=== PATIENT | female | born 1950 | race Caucasian/White ===

== ENCOUNTER 2018-09-28 06:35 | Day surgery (SDC) | payer MEDICARE, BC ==
[~2018-09-28 06:35] MED LIST: CEFAZOLIN 1 GM/D5W RTU 1 GM/50 ML RTUPB IV PRN
[2018-09-28] MEDS ORDERED: BUPIVACAINE HCL 0.5 % INJ/PF 30 ML SDV ONE (07:10)
[2018-09-28] MEDS ORDERED: LIDOCAINE 2% INJ (20 MG/ML) 20 ML MDV ONE ×2 (07:10→07:14)
[2018-09-28] MEDS ORDERED: NORMAL SALINE INJ/PF 0.9% 10 ML SDV ONE (07:11)
[2018-09-28] MEDS ORDERED: BUPIVACAINE INJ/PF LIPOSOME/PF 266 MG/20 ML SDV ONE (07:12)
[2018-09-28] MEDS ORDERED: FENTANYL CITRATE INJ/PF 100 MCG/2 ML AMPUL ONE (07:14)
[2018-09-28] MEDS ORDERED: ACETAMINOPHEN 1,000 MG/100 ML RTUPB IV ONE (07:14)
[2018-09-28] MEDS ORDERED: MIDAZOLAM 2 MG/2 ML INJ ONE (07:14)
[2018-09-28] MEDS ORDERED: PROPOFOL INJ 200 MG/20 ML VIAL IV ONE (07:15)
[2018-09-28] MEDS ORDERED: LIDOCAINE 0.5% INJ-PF (5 MG/ML) 50 ML SDV ONE (07:16)
[2018-09-28] MEDS: BACITRACIN INJ 50,000 UNIT VIAL ONE ×2 (08:52→09:30)
[2018-09-28] MEDS: POLYMYXIN B SULFATE INJ 500000 UNIT VIAL ONE ×2 (08:53→09:30)
--- NOTE | 2018-09-28 10:34 | RADIOLOGY REPORT (SQ) ---
EXAM DESCRIPTION: NO CHG FLUORO; FOOT RIGHT 2 VIEWS COMPLETED DATE/TIME: 09/28/2018 10:24 am REASON FOR STUDY: RIGHT FOOT BUNIONECTOMY M20.21 HALLUX RIGIDUS, RIGHT FOOT COMPARISON: None. PROCEDURE: Intraoperative fluoroscopic images obtained to evaluate progress. Please see operative r eport for detailed description of procedure. FLUOROSCOPY TIME: 6 seconds 2 Images saved to PACS TECHNIQUE: Intra-operative images acquired during surgical procedure to evaluate progress. NUMBER OF IMAGES: 2 LIMITATIONS: None. FINDINGS: Limited intraoperative fluoroscopic images of obtained to evaluate progress. Please see o perative report for detailed description of procedure. IMPRESSION: IMAGE(S) OBTAINED DURING PROCEDURE. COMMENT: Quality ID [id number]: Final reports for procedures using fluoroscopy that document radiation exp osure indices, or exposure time and number of fluorographic images (if radiation exposure indices are not available) Please consult full operative report of the attending physician for description of the procedure. TECHNICAL DOCUMENTATION: JOB ID: [id number] [employer]- All Rights Reserved Reading location - IP/workstation name: [email or web address]
--- NOTE | 2018-09-28 10:34 | RADIOLOGY REPORT (SQ) ---
EXAM DESCRIPTION: NO CHG FLUORO; FOOT RIGHT 2 VIEWS COMPLETED DATE/TIME: 09/28/2018 10:24 am REASON FOR STUDY: RIGHT FOOT BUNIONECTOMY M20.21 HALLUX RIGIDUS, RIGHT FOOT COMPARISON: None. PROCEDURE: Intraoperative fluoroscopic images obtained to evaluate progress. Please see operative r eport for detailed description of procedure. FLUOROSCOPY TIME: 6 seconds 2 Images saved to PACS TECHNIQUE: Intra-operative images acquired during surgical procedure to evaluate progress. NUMBER OF IMAGES: 2 LIMITATIONS: None. FINDINGS: Limited intraoperative fluoroscopic images of obtained to evaluate progress. Please see o perative report for detailed description of procedure. IMPRESSION: IMAGE(S) OBTAINED DURING PROCEDURE. COMMENT: Quality ID [id number]: Final reports for procedures using fluoroscopy that document radiation exp osure indices, or exposure time and number of fluorographic images (if radiation exposure indices are not available) Please consult full operative report of the attending physician for description of the procedure. TECHNICAL DOCUMENTATION: JOB ID: [id number] [employer]- All Rights Reserved Reading location - IP/workstation name: [email or web address]
--- NOTE | 2018-09-28 11:12 | SURGICARE OPERATIVE REPORT E ---
[facility] Operative Report NAME: MARTHA CARSON AGE: 67Y DATE OF SURGERY: 09/28/2018 ROOM: PREOPERATIVE DIAGNOSIS: HALLUX RIGIDUS WITH DEGENERATIVE JOINT DISEASE, RIGHT FOOT. POSTOPERATIVE DIAGNOSIS: HALLUX RIGIDUS WITH DEGENERATIVE JOINT DISEASE, RIGHT FOOT. OPERATION: Gilbert bunionectomy with insertion of total Silastic implant right foot. SURGEON: SALMA SALAZAR DPM VEGETABLE THINNER: ABBI HART DPM PROCEDURE: Following induction of IV regional local anesthesia, the right foot and leg were prepped and draped in the usual sterile manner. A pneumatic tourniquet was placed around the ankle and inflated to 250 mmHg after exsanguination of the limb via Esmarch bandage. The following surgical procedure was then performed: Gilbert bunionectomy with insertion of total Silastic implant right foot. Attention was directed to the dorsal aspect of the first metatarsophalangeal joint where an approximately 5 cm dorsal linear incision was made. The incision was deep and via sharp dissection. All bleeders were clamped and bovied as necessary for the purposes of hemostasis. A capsular incision was made in the same manner as the original skin incision and was made medial to the extensor hallucis longus tendon. The capsule was then reflected medially and laterally from the bone. Utilizing a rongeur, hypertrophied bone on the dorsal aspect at the base of the proximal phalanx of the hallux was removed and from the dorsal aspect of the first metatarsal head was removed. Utilizing a eRepublik sagittal saw, the hypertrophied medial eminence of the first metatarsal head was osteotomized parallel to the long axis of the bone and removed en toto from the wound. Utilizing a McGlamry elevator, the sesamoids were freed from their attachment to the plantar aspect of the first metatarsal head so they could move freely. Utilizing a e[employer]lik sagittal saw, the cartilaginous cap of the first metatarsal head was osteotomized perpendicular to the long axis of the bone and removed en toto from the wound. Utilizing a side-cutting [place], a hole was reamed into the head of the first metatarsal and into the base of the proximal phalanx. Utilizing a FOUNDD tree rasp, a whole was reamed into the head of the first metatarsal and into the base of the proximal phalanx to accept the implant. Utilizing hand-held reamers, the one for the head of the metatarsal and the base of the proximal phalanx were used to ensure that the holes were deep enough. A #3 spacer was placed across the joint and it was noted that it was the correct size for this patient. The area was then flushed with copious amounts of an antibacterial saline solution until no bony debris was noted in the wound. Bone wax was then applied to the medial and dorsal aspect of the first metatarsal head. A size 3S Langley flex stand, flexible hinge toe implant with grommets was then placed across the joint. An x-ray was taken. It was noted that the first metatarsophalangeal joint was in an anatomically correct position, that the grommets were seated properly and the implant was seated properly and was the correct size for this patient's bone. The capsule was then coapted and maintained utilizing simple interrupted sutures of 3-0 Vicryl. The subcutaneous tissue was then coapted and maintained utilizing simple interrupted sutures of 4-0 Vicryl. Twenty mL of EXPAREL was then injected subcutaneously along the incision and around the surgical site. The skin was then coapted and maintained utilizing a running subcuticular suture of 5-0 Vicryl. The foot was then cleansed with an alcohol foam. Benzoin was applied along the length of the incision and 1/8-inch Steri-Strips were applied to the incision. A dry sterile dressing was then applied consistent of Darell's silk, 4 x 4s, Conform, Kerlix, and Coban. The pneumatic tourniquet was released and it was noted that all digits were warm and viable and the patient was transferred to the recovery room. DICTATING PHYSICIAN: SALMA SALAZAR D.P.M. [id number] PHY#: [id number] ID: [id number] JOB#: [id number] ACCT: [id number] cc:SALMA SALAZAR DPM >
--- NOTE | 2018-09-28 14:37 | SURGICARE DISCHARGE SUMMARY E ---
[facility] Discharge Summary NAME: MARTHA CARSON AGE: 67Y ADMITTED: 09/28/2018 DISCHARGED: 09/28/2018 SURGICAL PROCEDURE: Gilbert bunionectomy with insertion of solo Silastic implant, right foot. POSTOPERATIVE DIAGNOSIS: Hallux rigidus with degenerative joint disease, right foot. SURGEON: Salma Salazar DPM CARDIAC TECHNOLOGIST: Ye Orozco DPM HOSPITAL COURSE: The patient was admitted to [facility] with chief complaint of a painful first metatarsophalangeal joint on her right foot. It had been painful for a number of years. She had undergone conservative therapy and had finally agreed to have the problems surgically corrected. She underwent the above surgical procedure without any complications, was transferred to the recovery room. She was discharged with a surgical shoe and ice pack, postoperative instructions, and postoperative prescriptions for Percocet 5/325 mg, #30; Phenergan 25 mg, #15; and cephalexin 500 mg, #4. She was given a postoperative appointment in the doctor's office for in 1 week, and the patient was discharged from [facility]. DICTATING PHYSICIAN: SALMA SALAZAR D.P.M. [id number] PHY#: [id number] ID: [id number] JOB#: [id number] ACCT: [id number] cc:SALMA SALAZAR DPM >
== END 2018-09-28 11:03 | disposition home or self-care (01) ==
LOC: SC 06:35
PROVIDERS: ATTEND Podiatrist Foot Surgery
DX: M20.21 Hallux rigidus, right foot (principal); M19.071 Primary osteoarthritis, right ankle and foot; K21.9 Gastro-esophageal reflux disease without esophagitis; J45.990 Exercise induced bronchospasm
CPT/HCPCS: 73620; 28292; C1776; J2250; J3490 ×6; J0690; J3010; J2704; J0131; C9290; 01480